=== PATIENT | male | born 1990 | race Two or more races ===

== ENCOUNTER 2021-07-27 10:56 | Inpatient (IN) | payer OTHER ==
[~2021-07-27] VITALS: Ht 172.7 cm; Wt 70.8 kg
--- NOTE | 2021-07-27 11:10 | NUR ---
BIBS C/O ABDOMINAL PAIN 07/28, -NAUSEA/VOMITING/DIARRHEA. PLACED COMFORTABLY IN BED. VITALS CHECKED.
--- NOTE | 2021-07-27 11:20 | NUR ---
PT CANNOT PROVIDE URINE SAMPLE AT THE MOMENT.
--- NOTE | 2021-07-27 11:37 | NUR ---
URINE SPECIMEN SENT TO LAB
--- NOTE | 2021-07-27 11:45 | NUR ---
PT BROUGHT TO CT DEPT
[2021-07-27] MEDS ORDERED: IV NS 0.9% 1,000 ML BAG IV ONE (12:00)
[2021-07-27 12:05] LABS: BASOPHILS % (AUTO) 0.3 % (0.0-2.0); EOSINOPHILS % (AUTO) 0.2 % (0.0-6.0); HEMATOCRIT 46 % (39-51); HEMOGLOBIN 15.5 g/dL (13.5-17.5); LYMPHOCYTES # (AUTO) 1.8 K/uL (0.8-4.8); LYMPHOCYTES % (AUTO) 18.6 % (20.0-44.0); MEAN CORPUSCULAR HGB CONC 34 g/dl (31.0-36.0); MEAN CORPUSCULAR VOLUME 82 fL (80-96); MONOCYTES # (AUTO) 0.7 K/uL (0.1-1.30); MONOCYTES % (AUTO) 7.1 % (2.0-12.0); NEUTROPHILS # (AUTO) 7.1 K/uL (1.8-8.9); NEUTROPHILS % (AUTO) 73.8 % (43.0-81.0); PLATELET COUNT (AUTO) 254 K/uL (150-450); RED BLOOD CELL COUNT(AUTO) 5.56 MIL/uL (4.5-6.0); WHITE BLOOD COUNT (AUTO) 9.6 K/uL (4.3-11.0)
--- NOTE | 2021-07-27 12:07 | NUR ---
IV CANNULA G18 INSERTED ON LEFT AC. 0.9NS 1L STARTED. END TIME 1247H
[2021-07-27 12:09] LABS: BILIRUBIN,URINE NEGATIVE (NEGATIVE); COLOR,URINE YELLOW (YELLOW); LEUKOCYTE ESTERASE ,URINE NEGATIVE (NEGATIVE); NITRITE, URINE NEGATIVE (NEGATIVE); PROTEIN,URINE NEGATIVE (NEGATIVE); UGLUCOSE NEGATIVE (NEGATIVE); UROBILINOGEN,URINE 0.2 EU/dL (0.2)
[2021-07-27 12:12] LABS: CALCIUM, SERUM 8.6 mg/dL (8.5-10.1); CREATININE 1.1 mg/dL (0.6-1.3); POTASSIUM 4.1 mmol/L (3.5-5.1)
[2021-07-27] MEDS ORDERED: PIPERACILLIN /TAZOBACTAM 3.375 G in IV D5W 50 ML IV ONE (12:30)
[2021-07-27 12:31] LABS: BILIRUBIN,DIRECT 0.2 mg/dL (0.0-0.2); BILIRUBIN,TOTAL 1.2 mg/dL (0.2-1.0); TOTAL PROTEIN, SERUM 7.3 g/dL (6.4-8.2)
--- NOTE | 2021-07-27 12:34 | NUR ---
MOVE SHEET SUBMITTED.
[2021-07-27] MEDS ORDERED: PIPERACILLIN /TAZOBACTAM 3.375 G VIAL IV ONE (12:39)
--- NOTE | 2021-07-27 12:41 | NUR ---
EKG AT BEDSIDE
--- NOTE | 2021-07-27 12:45 | NUR ---
JEEPER OPERATOR AT BEDSIDE FOR BLOOD CULTURE DRAW
--- NOTE | 2021-07-27 13:26 | NUR ---
CALLED DR. SABINO MURCIA [phone] LEFT MS.
--- NOTE | 2021-07-27 13:33 | NUR ---
COVID SWAB DONE AND SENT
[2021-07-27] MEDS ORDERED: IV D5/0.45 NACL 1,000 ML IV PRN (14:30)
[2021-07-27] MEDS ORDERED: ONDANSETRON HCL/PF 4 MG/2 ML VIAL IVP PRN (14:30)
[2021-07-27] MEDS ORDERED: MORPHINE SULFATE INJ 2 MG/ML DISP.SYRIN IV PRN (14:30)
--- NOTE | 2021-07-27 14:35 | NUR ---
BED 329
--- NOTE | 2021-07-27 14:40 | NUR ---
REPORT GIVEN TO SHANTELL MCLEAN OF MS UNIT
--- NOTE | 2021-07-27 15:45 | NUR ---
ADMISSION NOTE Received patient from ER via [facility]. Report given by [facility] at 1438. Patient is A/O x 4, able to make needs known. On room air, breathing evenly and unlabored. No SOB or s/s of distress noted. Patient is ambulatory and walked from [facility] to bed. Oriented to room and how to use the call light. All belongings accounted for. IV access on LAC #18, hooked D5 1/2NS to run at 75 ml/hr. VS as follows: BP 122/79, HR 62, RR 20, Temp 97.9, SPO2 99%. Skin assessment done, LEft knee scab noted. Photo taken and placed in chart. Lungs clear. Bowel sounds present. RLQ pain noted 2/10 on pain scale. Safety precautions in place: bed in low, locked position; siderails up x 2; call light within reach. Will continue to monitor.
[2021-07-27] MEDS ORDERED: PIPERACILLIN /TAZOBACTAM 4.5 G in IV D5W 50 ML IV SCH (18:00)
--- NOTE | 2021-07-27 18:52 | NUR ---
MS RN CLOSING NOTE Patient in bed, resting comfortably. A/O x 4, able to make needs known. Stable on room air, breathing evenly and unlabored. No SOB or s/s of distress noted. IV access on LAC #18 infusing D5 1/2 NS at 75 ml/hr. NPO status maintained. Pain on RLQ still noted, 2/10 on pain scale, but patient states he doesn't need pain medication. All needs attended to. Safety precautions maintained: bed in low, locked position; siderails up x 2; call light within reach. Will endorse to machinist 2nd shift nurse for [facility].
--- NOTE | 2021-07-27 19:35 | NUR ---
MS CARIDAD OPENING NOTES\\ Patient in bed, resting comfortably. A/O x 4, able to make needs known. Stable on room air, breathing evenly and unlabored. No SOB or s/s of distress noted. IV access on LAC #18 infusing D5 1/2 NS at 75 ml/hr. NPO status maintained. Pain on RLQ still noted, 2/10 on pain scale, but patient states he doesn't need pain medication. All needs attended to. Safety precautions maintained: bed in low, locked position; siderails up x 2; call light within reach. Will endorse to porcelain technician nurse for [facility]. Addendum: 07/27/21 at 1935 by July DANA MCLEAN DISREGARD
--- NOTE | 2021-07-27 19:35 | NUR ---
MS RN OPENING NOTES RECEIVED PT IN BED AWAKE, IN SUPINE POSITION. A/O X4. BREATHING EVEN AND NON-LABORED ON ROOM AIR. C/O RIGHT LOWER ABDOMINAL PAIN UPON PALPATION. CURRENTLY ON NPO. HAS LEFT ANTECUBITAL IV ACCESS #18G WITH D5 1/2 NS RUNNING AT 75 ML/HR. NO S/S OF INFILTRATION NOTED. SAFETY PRECAUTIONS IN PLACE. WILL CONTINUE PLAN OF CARE.
[2021-07-27 20:00] VITALS: BP 112/58
[2021-07-27] MEDS: PIPERACILLIN /TAZOBACTAM 3.375 G in IV D5W 100 ML IV SCH (20:41)
[2021-07-28] MEDS: PIPERACILLIN /TAZOBACTAM 3.375 G in IV D5W 100 ML IV SCH (04:34)
[2021-07-28 06:20] LABS: BASOPHILS % (AUTO) 0.6 % (0.0-2.0); EOSINOPHILS % (AUTO) 1.2 % (0.0-6.0); HEMATOCRIT 43 % (39-51); HEMOGLOBIN 15.2 g/dL (13.5-17.5); LYMPHOCYTES # (AUTO) 2.6 K/uL (0.8-4.8); LYMPHOCYTES % (AUTO) 39.1 % (20.0-44.0); MEAN CORPUSCULAR HGB CONC 35 g/dl (31.0-36.0); MEAN CORPUSCULAR VOLUME 81 fL (80-96); MONOCYTES # (AUTO) 0.6 K/uL (0.1-1.30); MONOCYTES % (AUTO) 8.9 % (2.0-12.0); NEUTROPHILS # (AUTO) 3.3 K/uL (1.8-8.9); NEUTROPHILS % (AUTO) 50.2 % (43.0-81.0); PLATELET COUNT (AUTO) 245 K/uL (150-450); RED BLOOD CELL COUNT(AUTO) 5.35 MIL/uL (4.5-6.0); WHITE BLOOD COUNT (AUTO) 6.6 K/uL (4.3-11.0)
[2021-07-28 06:22] LABS: CALCIUM, SERUM 8.8 mg/dL (8.5-10.1); CREATININE 1.5 mg/dL (0.6-1.3); MAGNESIUM 2.2 mg/dL (1.8-2.4); PHOSPHORUS 4.3 mg/dL (2.5-4.9)
--- NOTE | 2021-07-28 06:33 | NUR ---
MS RN CLOSING NOTES PT LYING IN BED WITH EYES CLOSED. EASY TO AROUSE. A/O X4. NO SOB OR , TOLERATING ROOM AIR WELL. NO ACUTE DISTRESS NOTED. AFEBRILE. DENIES PAIN AT THIS TIME. ICE CHIPS GIVEN PER MD ORDER. AMBULATORY W/ STEADY GAIT. HAS LEFT ANTECUBITAL IV ACCESS #18G WITH IVPB ZOSYN RUNNING AT 25 ML/HR. INTACT, PATENT AND FLUSHING. ALL DUE MEDS GIVEN. KEPT DRY AND COMFORTABLE. SAFETY MEASURES IN PLACE: BED LOW AND LOCKED, SIDE RAILS UP X2, CALL LIGHT WITHIN REACH.
--- NOTE | 2021-07-28 07:30 | NUR ---
ms rn received on bed, awake,alert, oriented x4,not in any form of distress.
[2021-07-28 08:00] VITALS: BP 123/71
[2021-07-28] MEDS ORDERED: PANTOPRAZOLE 40 MG VIAL IV SCH (09:00)
--- NOTE | 2021-07-28 09:00 | NUR ---
ms rn npo at this time, cannot wait for doctor, refused protonix iv at this time, wants to go [facility].
--- NOTE | 2021-07-28 09:52 | NUR ---
ms rn patient went [facility], explain the risk of going w/o medical advise but patient cannot wait for doctor.
== END 2021-07-28 09:50 | disposition left against medical advice (07) | DRG 395 ==
LOC: ER 11:04 → MED 15:16
DX: K35.80 Unspecified acute appendicitis (principal); Z20.822 Contact with and (suspected) exposure to COVID-19; Z53.29 Procedure and treatment not carried out because of patient's decision for other reasons; M43.06 Spondylolysis, lumbar region; M51.37 Other intervertebral disc degeneration, lumbosacral region
CPT/HCPCS: 36415; 71045-TC; 80048-TC; 80076-TC; 83605-TC; 83690-TC; 83735-TC; 84100-TC; 85025-TC; 85730-TC; 87040-TC; 87081-TC; C9803; G0378; J2543; J3490; J7030; J7060